=== PATIENT | male | born 1935 | race Caucasian/White ===

== ENCOUNTER → 2017-04-09 | Outpatient (CLI) | payer MEDICARE, BC ==
[~2017-04-09] MED LIST: ACID REDUCER20 M1 PO; FLOMAX0.4 MG PO; IMDUR30 MG PO; INDERAL80 MG PO; LO-DOSE ASPIRIN81 M1 PO; TRAZODONE HCL50 MG PO
== END | disposition home or self-care (01) ==
LOC: CDC 08:53
DX: Z01.810 Encounter for preprocedural cardiovascular examination (principal); K64.9 Unspecified hemorrhoids; I49.3 Ventricular premature depolarization; I44.7 Left bundle-branch block, unspecified; R94.31 Abnormal electrocardiogram [ECG] [EKG]
CPT/HCPCS: 93000

== ENCOUNTER 2017-04-16 08:06 | Day surgery (SDC) | payer OTHER, BC ==
[~2017-04-16] VITALS: Ht 177.8 cm; Wt 83.9 kg
[2017-04-16 08:50] VITALS: BP 100/60
[2017-04-16] MEDS ORDERED: ENDOCET 5-3251 EACH PO (14:01)
[2017-04-16] MEDS ORDERED: COLACE100 MG PO (14:01)
[2017-04-16 15:07] VITALS: BP 119/57
[2017-04-16 15:10] VITALS: BP 142/67
[2017-04-16 16:07] VITALS: BP 119/57
[2017-04-16 17:43] VITALS: BP 138/64
== END 2017-04-16 17:45 | disposition home or self-care (01) ==
LOC: SDC
PROC: 06BY0ZC Excision of Hemorrhoidal Plexus, Open Approach (ICD-10-PCS; principal; 2017-04-16)
PROC: 0DJD7ZZ Inspection of Lower Intestinal Tract, Via Natural or Artificial Opening (ICD-10-PCS; principal; 2017-04-16)
DX: K64.8 Other hemorrhoids (principal); K64.4 Residual hemorrhoidal skin tags; D64.9 Anemia, unspecified; K21.9 Gastro-esophageal reflux disease without esophagitis; I25.10 Atherosclerotic heart disease of native coronary artery without angina pectoris; J44.9 Chronic obstructive pulmonary disease, unspecified; E78.00 Pure hypercholesterolemia, unspecified; I25.2 Old myocardial infarction; F41.9 Anxiety disorder, unspecified; Z87.891 Personal history of nicotine dependence
CPT/HCPCS: 88304; J0131; J0330; J0585; J1100; J1170; J2405; J2710; J3010; S0074

== ENCOUNTER 2017-07-12 22:12 | Inpatient (IN) | payer OTHER, BC ==
[~2017-07-12] VITALS: Ht 177.8 cm; Wt 86.2 kg
[~2017-07-12 22:12] MED LIST changes: +COLACE100 MG PO; +DOCUSATE SODIU100 M1 PO; +ENDOCET 5-3251 EACH PO; +FEOSOL325 MG PO; +LIPITOR40 MG PO; +NEURONTIN300 MG PO
[2017-07-13 12:23] VITALS: BP 134/67
[2017-07-13 16:14] VITALS: BP 147/75
[2017-07-13 19:50] VITALS: BP 125/58
[2017-07-14] VITALS (7 sets, daily range): BP systolic 109–163; BP diastolic 56–86
[2017-07-14 06:20] LABS: HEMATOCRIT 32.3 % (38.0-50.0); MCV 91.8 FL (86-99)
[2017-07-14 06:26] LABS: HEMOGLOBIN 10.4 G/DL (12.5-16.6)
[2017-07-14 07:31] LABS: CHLORIDE 104 MEQ/L (99-109); POTASSIUM 4.4 MEQ/L (3.7-5.4); SODIUM 140 MEQ/L (136-147)
[2017-07-14 07:37] LABS: GFR ESTIMATE (CALCULATED) > 59 mL/min/ (58.99-99999); GLUCOSE 112 mg/dL (70-99); UREA NITROGEN (BUN) 21 mg/dL (9-23)
[2017-07-14 08:18] LABS: POTASSIUM 4.2 MEQ/L (3.7-5.4)
[2017-07-15 00:20] VITALS: BP 110/70
[2017-07-15 04:15] VITALS: BP 135/63
[2017-07-15 06:12] LABS: HEMATOCRIT 32.9 % (38.0-50.0); HEMOGLOBIN 10.4 G/DL (12.5-16.6); MCV 91.4 FL (86-99)
[2017-07-15 08:22] VITALS: BP 129/62
[2017-07-15] MEDS ORDERED: ELIQUIS2.5 MG PO (08:53)
[2017-07-15] MEDS ORDERED: CELECOXIB200 MG PO (08:53)
[2017-07-15] MEDS ORDERED: OXYCODONE HCL5 MG PO (08:53)
[2017-07-15 12:17] VITALS: BP 118/84
== END 2017-07-15 14:20 | DRG 470 ==
LOC: ENRESERV 22:12 → 2SOUTH 07-13 08:41 → 3WEST 07-13 15:50
PROVIDERS: Orthopaedic Surgery
PROC: 0SRD0J9 Replacement of Left Knee Joint with Synthetic Substitute, Cemented, Open Approach (ICD-10-PCS; principal; 2017-07-13)
DX: M17.12 Unilateral primary osteoarthritis, left knee (principal); I25.2 Old myocardial infarction; K21.9 Gastro-esophageal reflux disease without esophagitis; E78.00 Pure hypercholesterolemia, unspecified; Z79.01 Long term (current) use of anticoagulants
CPT/HCPCS: 80048; 84999; 85014; 85018; C1713; J0131; J0690; J1885; J2250; J2405; J2795; J7050; S0020